=== PATIENT | female | born 1985 | race Caucasian/White ===

== ENCOUNTER 2020-02-12 09:10 | Outpatient (CLI) | payer OTHER, SELFPAY ==
[2020-02-12 09:36] LABS: Basophils Absolute Auto 0.1 K/mm3 (0.0-0.1); Basophils Percent Auto 0.4 % (0.2-1.2); Eosinophils Absolute Auto 0.2 K/mm3 (0-0.3); Eosinophils Percent Auto 1.6 % (0-4.4); Hematocrit 45.8 % (37.0-47.0); Hemoglobin 14.7 g/dL (12.0-15.0); Immature Granulocyte Absolute 0.03 K/mm3 (0.00-0.031); Immature Granulocyte Percent A 0.3 % (0-0.5); Lymphocytes Absolute Auto 3.63 K/mm3 (0.9-3.2); Lymphocytes Percent Auto 31.7 % (18.3-44.2); Mean Corpuscular HGB Conc 32.1 g/dl (32-36); Mean Corpuscular Hemoglobin 30.1 pg (26-34); Mean Corpuscular Volume 93.7 fl (80-100); Mean Platelet Volume 10.1 fl (7.4-10.4); Monocytes Absolute Auto 0.5 K/mm3 (0.1-0.6); Neutrophils Absolute Auto 7.1 K/mm3 (1.3-6.7); Platelet Count Result 335 k/mm3 (150-375); Red Blood Count 4.89 M/mm3 (4.2-5.4); Red Cell Distribution Width 12.7 % (11.5-14.5); White Blood Count 11.5 K/mm3 (4.5-10.0)
[2020-02-12 09:45] LABS: Potassium 4.1 mmol/L (3.4-5.0)
[2020-02-12 09:54] LABS: Alanine Aminotransferase 19 U/L (4-35); Albumin Level 4.3 g/dL (3.5-5.1); Alkaline Phosphatase 81 U/L (38-126); Aspartate Amino Transferase 23 U/L (14-36); Bilirubin,Total 0.5 mg/dL (0.2-1.3); Blood Urea Nitrogen 8 mg/dL (7-17); Calcium 8.8 mg/dL (8.4-10.2); Carbon Dioxide 28 mmol/L (22-30); Chloride 105 mmol/L (98-107); Cholesterol 178 mg/dL (0-200); Estimated Glomerular Filt Rate > 60; Glucose 98 mg/dL (65-105); HDL Direct 34 mg/dL; Sodium 141 mmol/L (137-145); Triglycerides 146 mg/dL (<150)
[2020-02-12 10:05] LABS: LDL Cholesterol Direct 112 mg/dL
[2020-02-12 10:20] LABS: Vitamin D 25 Hydroxy 20.2 ng/mL
== END 2020-02-12 09:11 | disposition home or self-care (01) ==
PROVIDERS: PCP Family Medicine; Visit Provider Family Medicine
DX: Z00.00 Encounter for general adult medical examination without abnormal findings (principal); Z13.220 Encounter for screening for lipoid disorders
CPT/HCPCS: 36415; 80053; 80061; 82306; 85025

== ENCOUNTER 2021-05-12 13:08 | Observation (INO) | payer OTHER, SELFPAY ==
--- NOTE | ~2021-05-12 | CT_ITS ---
EXAMINATION: CT abdomen pelvis w con DATE: 05/12/2021 16:53 INDICATION: Generalized abdominal pain. TECHNIQUE: Computed tomography (CT) of the abdomen and pelvis was performed with 100 mL Omnipaque 350 intravenous contrast. Automated exposure control and iterative reconstruction technique were employe d. The dose-length product was 1123.59 mGy-cm. COMPARISON: None. FINDINGS: The visualized portions of the lung bases demonstrate mild atelectasis. No pleural effusion . The heart size is normal. No pericardial effusion. The liver, gallbladder, spleen, pancreas, adrena l glands, and kidneys are normal. There is urothelial hyperenhancement in the left ureter, consistent with pyelitis. There are no dilated loops of bowel. The appendix is normal. There are no pathologica lly enlarged lymph nodes. There is no free intraperitoneal fluid. There is moderate lower lumbar spon dylosis. IMPRESSION: 1. Left-sided pyelitis. Reviewed, dictated and finalized at location A. IMPRESSION: 1. Left-sided pyelitis.
[2021-05-12 13:20] VITALS: PULSE 86; RESP 18; TEMP 36.6; O2SAT 97
[2021-05-12 13:37] LABS: Basophils Absolute Auto 0.1 K/mm3 (0.0-0.1); Basophils Percent Auto 0.3 % (0.2-1.2); Eosinophils Absolute Auto 0.3 K/mm3 (0-0.3); Eosinophils Percent Auto 1.8 % (0-4.4); Hemoglobin 13.9 g/dL (12.0-15.0); Immature Granulocyte Absolute 0.07 K/mm3 (0.00-0.031); Immature Granulocyte Percent A 0.4 % (0-0.5); Lymphocytes Absolute Auto 4.15 K/mm3 (0.9-3.2); Lymphocytes Percent Auto 23.7 % (18.3-44.2); Mean Corpuscular HGB Conc 32.3 g/dl (32-36); Mean Corpuscular Hemoglobin 29.9 pg (26-34); Mean Corpuscular Volume 92.5 fl (80-100); Mean Platelet Volume 9.6 fl (7.4-10.4); Monocytes Absolute Auto 0.7 K/mm3 (0.1-0.6); Monocytes Percent Auto 4.2 % (2.6-8.5); Neutrophils Absolute Auto 12.2 K/mm3 (1.3-6.7); Neutrophils Percent Auto 69.6 % (45.5-73.1); Platelet Count Result 369 k/mm3 (150-375); Red Blood Count 4.65 M/mm3 (4.2-5.4); Red Cell Distribution Width 12.7 % (11.5-14.5); White Blood Count 17.5 K/mm3 (4.5-10.0)
[2021-05-12 13:52] LABS: Alanine Aminotransferase 18 U/L (4-35); Alkaline Phosphatase 80 U/L (38-126); Anion Gap 7 mmol/L (8-16); Aspartate Amino Transferase 23 U/L (14-36); Bilirubin,Total 0.7 mg/dL (0.2-1.3); Blood Urea Nitrogen 7 mg/dL (7-17); Calcium 8.9 mg/dL (8.4-10.2); Carbon Dioxide 25 mmol/L (22-30); Chloride 109 mmol/L (98-107); Estimated CRCL calculation 93 ml/min; Estimated Glomerular Filt Rate > 60; Glucose 96 mg/dL (65-105); Lipase 36 U/L (23-300); Sodium 141 mmol/L (137-145)
[2021-05-12 14:04] LABS: Add Urine Microscopic? YES; Appearance Urine Cloudy (Clear); Bacteria Urine Trace /hpf; Bilirubin Urine Negative (Negative); Blood Urine 2+ (Negative); Color Urine Yellow (Yellow); Glucose Urine UA Negative (Negative); Ketones Urine Negative (Negative); Leukocyte Esterase Ur 3+ LEU/UL (Negative); Mucus Urine Rare /lpf; Nitrate Urine Negative (Negative); Protein Urine 2+ mg/dL (Negative); RBC Urine >75 /hpf (0-2); Specific Grav Ur 1.015 (1.001-1.035); Squamous Epithelial Cell Urine Few /hpf (Few); Urobilinogen Urine Negative mg/dL (<2.0); WBC Urine >75 /hpf
[2021-05-12] MEDS: SODIUM CHLORIDE 0.9% IV 1,000 ML 999 ML IV CONT (15:55)
--- NOTE | 2021-05-12 16:05 | ED.ABDPAIN ---
HPI - Abdominal Pain General Chief Complaint: Abdominal Pain Stated Complaint: abd pain Time Seen by Provider: 05/12/21 15:08 Source: patient Mode of arrival: ambulatory Limitations: no limitations and clinical condition History of Present Illness HPI narrative: Patient 36 years old white female presents with dysuria and urine frequency started 1 week ago, improved 2 days later, the symptom back again yesterday associated with pain in the epigastric radiating to left abdomen and left flank area. Patient reported nausea and vomiting twice yesterday. Patient denies any fever, chills, chest pain or shortness of breath. Patient on her period right now, patient on medication to lose weight and vitamin D. Patient smokes and uses marijuana, doesn't drink. Patient didn't eat today because of nausea and poor appetite. Patient received ibuprofen last night. Related Data Allergies Allergy/AdvReac Type Severity Reaction Status Date / Time No Known Allergies Allergy Mild Unverified 11/15/11 20:05 Review of Systems Review of Systems: Narrative: CONSTITUTIONAL: Denies fever, chills, or sweats. EYES: Denies visual changes, redness, or discharge. ENT: Denies rhinorrhea, congestion, sore throat, or otalgia. CARDIOVASCULAR: Denies chest pain, palpitations, or edema. RESPIRATORY: Denies cough or dyspnea. GASTROINTESTINAL: Denies abdominal pain, nausea, vomiting, or diarrhea. GENITOURINARY: Denies dysuria or hematuria. SKIN: Denies rash or itching. MUSCULOSKELETAL: Denies back pain, joint pain, or myalgia. NEUROLOGIC: Denies headache, numbness, or weakness. PSYCHIATRIC: Denies anxiety or depression. PMFSH Social History Social History Gender identity (if verbalized by the patient): Female Exam Narrative: Exam Narrative: General appearance: Well-developed, well-nourished Skin: Normal color Head: Normocephalic, nontraumatic Eyes: Clear conjunctiva ENT: Oropharynx normal, ears normal, nose normal Neck: Supple, nontender Chest and respiratory: Airway patent, no respiratory distress, no accessory muscle use Heart: Regular rate/rhythm Abdomen: Soft, nontender, no organomegaly, quiet bowel sounds Vascular: Normal peripheral pulses, normal capillary refill. Musculoskeletal: Normal range of motion, nontender back Neurologic: Alert and oriented ?3, [employer] is normal as tested, no gross motor deficit Course Course Emergency Course: Stable Vital Signs Vital signs: Vital Signs Temperature 36.6 C 05/12/21 13:20 Pulse Rate 86 05/12/21 13:20 Respiratory Rate 18 05/12/21 13:20 Pulse Oximetry 97 05/12/21 13:20 Temperature 36.6 C 05/12/21 13:20 Pulse Rate 86 05/12/21 13:20 Respiratory Rate 18 05/12/21 13:20 Pulse Oximetry 97 05/12/21 13:20 MDM - Abdominal Pain MDM Narrative Medical decision making narrative: Urinary tract infection is my concern. Differential diagnosis as below Labs, UA, CT abdomen pelvis with IV contrast, IV fluid ordered. Further plan to follow. . Differential Diagnosis Differential diagnosis: Likely abdominal pain, constipation, diverticulitis, pancreatitis and small bowel obstruction Lab Data Result diagrams: 05/12/21 13:25 05/12/21 13:25 Labs: Lab Results 05/12/21 05/12/21 05/12/21 Range/Units 13:25 13:25 13:49 WBC 17.5 H (4.5-10.0) K/mm3 RBC 4.65 (4.2-5.4) M/mm3 Hgb 13.9 (12.0-15.0) g/dL Hct 43.0 (37.0-47.0) % MCV 92.5 (80-100) fl MCH 29.9 (26-34) pg MCHC 32.3 (32-36) g/dl RDW 12.7 (11.5-14.5) % Plt Count 369 (150-375) k/mm3 MPV 9.6 (7.4-10.4) fl Immature Gran % (Auto) 0.
[2021-05-12 17:00] VITALS: BP 123/88; PULSE 78; RESP 18; O2SAT 100
--- NOTE | 2021-05-12 18:59 | ADMGEN ---
This patient, Ila Rajput, was admitted to Medical Room 243-. Patient/family oriented to hospital policies and general routines including ID bracelet, bed and alarms, visiting hours, pain management, procedures, bathroom and other care routines, personal items, smoking policy, room service/diet, and visiting hours. Information on how to activate the Rapid Response Team has been discussed. Patient/Family are encouraged to report perceived risks to care and to ask questions if they do not understand what they are told or what they should do.
[2021-05-12 20:00] VITALS: BMI 36.7
[2021-05-12] MEDS: SODIUM CHLORIDE 0.9% IV 1,000 ML 150 ML IV CONT (20:19)
--- NOTE | 2021-05-12 21:00 | PM.IMHP ---
H&P: HPI History of Present Illness Date/Time: 05/12/21 21:00 Chief Complaint: Abdominal pain and burning with urination. Narrative: This is a 36-year-old female smoker without any significant medical history presented to the emergency department earlier today via private vehicle from home for evaluation of abdominal pain and burning with urination. About a week ago she developed a mild symptoms consistent with previous urinary tract infections so she began pushing fluids and drinking cranberry juice. Initially thought she was feeling better however yesterday she began to feel quite bad with with increasing dysuria, urinary urgency, sweats, nausea, and vomiting. She also developed pain in her left flank radiating into the low back, described as aching in nature. She has also had sweats but does not think she has had a fever. She was found to have evidence of left-sided pyelitis on imaging today and she is being admitted due to continued nausea and inability to keep food down. She has not had a documented fever. No hematuria or history of kidney stones. She denies diarrhea. Review of Systems Review of Systems: Narrative: Twelve systems were reviewed with pertinent positives and negatives as per HPI. No cold or flu symptoms. She denies exposure to those positive for COVID-19. She has been taking phentermine since September and has lost 30 pounds. Except as documented, all other systems were reviewed and are negative. [facility] Past Medical History Medical History (Updated 05/12/21 @ 22:00 by Sammi Arreaga PA-C) Tobacco dependence Vitamin D deficiency Surgical History Surgical History (Updated 05/12/21 @ 21:57 by Sammi Arreaga PA-C) History of loop electrosurgical excision procedure (LEEP) Family History Family History (Updated 05/12/21 @ 21:57 by Sammi Arreaga PA-C) Father Malignant neoplasm of prostate Diabetes mellitus Social History Social History (Updated 05/12/21 @ 21:58 by Sammi Arreaga PA-C) Social History: The patient is and lives with her and 9-year-old son in [place]. She works for a local dentist. Smokes 1 pack of cigarettes per day and has done so for approximately 18 years. Occasional marijuana use, mainly at night to help her sleep. No alcohol abuse. She designates her , [employer], as her surrogate decision maker and she wishes to be a full code. Meds Home Medications and Allergies Home Medications Medication Instructions Recorded Confirmed Type ergocalciferol (vitamin D2) 1,250 mcg PO DAILY 05/12/21 05/12/21 History phentermine 37.5 mg PO DAILY 05/12/21 05/12/21 History Allergies Allergy/AdvReac Type Severity Reaction Status Date / Time No Known Allergies Allergy Mild Unverified 11/15/11 20:05 Vital Signs Vital Signs - 24 hr 05/12/21 13:20 05/12/21 17:00 05/12/21 21:47 Temperature 97.9 F 97.4 F L Pulse Rate 86 78 81 Respiratory Rate 18 18 16 Blood Pressure 123/88 126/84 Pulse Oximetry 97 100 99 Exam Narrative: Exam Narrative: General: Nontoxic-appearing female sitting up in bed no distress. Weight: 94 kilograms. BMI: 36.7. HEENT: PERRL, EOMI. Sclerae anicteric. Tacky mucous membranes. Neck: Supple. Respiratory: Lungs are clear to auscultation bilaterally. Cardiovascular: Regular rate and rhythm with S1-S2. No murmur, rub, or gallop. Gastrointestinal: Abdomen is soft and nondistended with positive bowel sounds. Equivocal left-sided CVA tenderness. Skin: Warm and dry. No rash or lesions on limited exam. Extremities: No cyanosis, clubbing, or edema. Radial and pedal pulses intact. Neurological: Alert. Cranial nerves 2-12 are grossly intact. No gross focal deficits to casual conversation. Psychiatric: Pleasant and cooperative with normal mood and affect. Judgment and insight intact. H&P: Results Labs Labs: Short CBC 05/12/21 Range/Units 13:25 WBC 17.5 H (4.5-10.0) K/mm3 Hgb 13.9 (
[2021-05-12 21:47] VITALS: BP 126/84; PULSE 81; RESP 16; TEMP 36.3; O2SAT 99
[2021-05-12] MEDS: SODIUM CHLORIDE 0.9% IV 1,000 ML 100 ML IV CONT (22:33)
[2021-05-13 05:53] LABS: Hematocrit 38.7 % (37.0-47.0); Hemoglobin 12.4 g/dL (12.0-15.0); Mean Corpuscular Hemoglobin 30.1 pg (26-34); Mean Corpuscular Volume 93.9 fl (80-100); Mean Platelet Volume 9.8 fl (7.4-10.4); Platelet Count Result 331 k/mm3 (150-375); Red Blood Count 4.12 M/mm3 (4.2-5.4); Red Cell Distribution Width 12.6 % (11.5-14.5); White Blood Count 12.7 K/mm3 (4.5-10.0)
[2021-05-13 06:00] VITALS: BP 120/70; PULSE 80; RESP 16; TEMP 36.4; O2SAT 100
[2021-05-13 06:00] LABS: Anion Gap 4 mmol/L (8-16); Blood Urea Nitrogen 6 mg/dL (7-17); Carbon Dioxide 25 mmol/L (22-30); Chloride 112 mmol/L (98-107); Estimated CRCL calculation 105 ml/min; Estimated Glomerular Filt Rate > 60; Glucose 96 mg/dL (65-105); Potassium 3.8 mmol/L (3.4-5.0); Sodium 141 mmol/L (137-145)
--- NOTE | 2021-05-13 10:03 | PM.DS ---
DS: Admitting Diagnosis Admitting Diagnosis Admitting Diagnosis: UTI, N/V DS: Discharge Diagnosis Discharge Diagnosis (1) Acute pyelitis: Code(s): N10 - Acute pyelonephritis Status: Acute (2) Urinary tract infection: Code(s): N39.0 - Urinary tract infection, site not specified Status: Acute (3) Tobacco dependence: Code(s): F17.200 - Nicotine dependence, unspecified, uncomplicated Status: Acute DS: Summary Hospital Course Hospital Course: Patient is a 36-year-old female who presented emergency room for dysuria and frequency as well as epigastric pain radiating to the left flank area as well as nausea vomiting. She was find to have pyelitis and a UA consistent with a UTI. She had no concerns for STIs. She was started on ceftriaxone and admitted to the hospitalist service. Her diet was slowly increased and she tolerated a regular diet at discharge. Her pain had resolved the day of discharge and she was feeling much better. She denied lightheadedness, dizziness, fevers chills, nausea, vomiting, abdominal pain and her dysuria was better. We spoke about hygiene and to urinate after sex, wipe front to back, and limit soaking in the bathtub. Also talked to her about obtaining a COVID-19 vaccine. She is going to be sent home on Cipro, which she has taken in the past, and I let her know I will call her if she needs a medication change when her culture comes back. I told her if this comes back negative, she may need STI testing although I think this is much less likely given her symptoms and findings. Overall, the patient had improved and was ready for discharge. She was educated about the worrisome signs and symptoms to come to emergency room for was discharged stable condition. Status at Discharge Functional status at discharge: independent ambulation Overall status at discharge: patient is back to baseline Time Spent with Patient Time attestation: Total time spent providing and/or coordinating discharge services:32 min Time spent: Greater than 30 minutes Exam Narrative: Exam Narrative: General: Well developed well nourished patient in NAD HEENT: normocephalic Neck: supple Neuro: Alert and oriented x4. CV:RRR Resp:CTA Abd: Soft, non distended. No pain to palpation. Positive bowel sounds Extremities: No swelling, erythema, or pain to palpation. DS: Data Data Completed and Pending Labs on day of discharge: Labs from last 24 hours 05/13/21 05/13/21 05/12/21 05:18 05:18 13:49 WBC 12.7 H RBC 4.12 L Hgb 12.4 Hct 38.7 MCV 93.9 MCH 30.1 MCHC 32.0 RDW 12.6 Plt Count 331 MPV 9.8 Immature Gran % (Auto) Neut % (Auto) Lymph % (Auto) [place] % (Auto) Eos % (Auto) Baso % (Auto) Lymph # (Auto) [place] # (Auto) Eos # (Auto) Baso # (Auto) Abs Immat Gran (auto) Absolute Neuts (auto) Absolute Nucleated RBC Nucleated RBC % Sodium 141 Potassium 3.8 Chloride 112 H Carbon Dioxide 25 Anion Gap 4 L BUN 6 L Creatinine 0.70 Estim Creat Clear Calc 105 Estimated GFR > 60 Glucose 96 Calcium 8.0 L Magnesium 2.0 Total Bilirubin AST ALT Alkaline Phosphatase Total Protein Albumin Lipase Urine Color Yellow Urine Appearance Cloudy H Urine pH 7.0 Ur Specific [place] 1.015 Urine Protein 2+ H Urine Glucose (UA) Negative Urine Ketones Negative Ur Blood (Man) 2+ H Urine Nitrate Negative Urine Bilirubin Negative Urine Urobilinogen Negative Leukocyte Esterase Rfl 3+ H Urine RBC >75 H Urine WBC >75 H Ur Squamous Epith Cells Few Urine Bacteria Trace Urine Mucus Rare 05/12/21 05/12/21 13:25 13:25 WBC 17.5 H RBC 4.65 Hgb 13.9 Hct 43.0 MCV 92.5 MCH 29.9 MCHC 32.3 RDW 12.7 Plt Count 369 MPV 9.6 Immature Gran % (Auto) 0.4 Neut % (Auto) 69.6 Lymph % (Auto) 23.7 [place] % (Auto) 4.2 Eo
== END 2021-05-13 11:24 | disposition home or self-care (01) ==
LOC: ANHED 17:33 → ANH2MED 18:09
PROVIDERS: Physician Assistant; Admitting Provider Family Medicine; Emergency Provider Emergency Medicine; PCP Family Medicine; Visit Provider Physician Assistant
DX: N10 Acute pyelonephritis (principal); N39.0 Urinary tract infection, site not specified; B96.20 Unspecified Escherichia coli [E. coli] as the cause of diseases classified elsewhere; R10.13 Epigastric pain; F17.210 Nicotine dependence, cigarettes, uncomplicated
CPT/HCPCS: 36415; 74177; 80048; 80053; 81001; 81025; 83690; 83735; 85025; 85027; 87077; 87086; 87088; 87186; 96361; 96365; 99285; G0378; J0696; J7030; Q9967